=== PATIENT | female | born 1955 | race Caucasian/White ===

== ENCOUNTER → 2017-05-12 | Outpatient (CLI) | payer BC | LOC: MC.RAD 05-06 10:40 | DX: Z12.31 Encounter for screening mammogram for malignant neoplasm of breast (principal) ==

== ENCOUNTER → 2018-05-13 | Outpatient (CLI) | payer BC | LOC: MC.RAD 13:00 | DX: Z12.31 Encounter for screening mammogram for malignant neoplasm of breast (principal) ==

== ENCOUNTER → 2019-06-23 | Outpatient (CLI) | payer BC | LOC: MC.RAD 14:00 | DX: Z12.31 Encounter for screening mammogram for malignant neoplasm of breast (principal) ==

== ENCOUNTER → 2020-08-08 | Outpatient (CLI) | payer BC | LOC: MC.RAD 17:00 | DX: Z12.31 Encounter for screening mammogram for malignant neoplasm of breast (principal); N63.10 Unspecified lump in the right breast, unspecified quadrant ==

== ENCOUNTER → 2021-10-06 | Outpatient (CLI) | payer MEDICARE, BC | LOC: MC.RAD 13:30 | DX: Z12.31 Encounter for screening mammogram for malignant neoplasm of breast (principal); N63.10 Unspecified lump in the right breast, unspecified quadrant ==

== ENCOUNTER → 2021-10-17 | Outpatient (CLI) | payer MEDICARE, BC | LOC: MC.RAD 08:51 | DX: N63.12 Unspecified lump in the right breast, upper inner quadrant (principal); N64.89 Other specified disorders of breast ==

== ENCOUNTER → 2021-10-22 | Outpatient (CLI) | payer MEDICARE, BC | LOC: MC.RAD 07:57 | DX: N63.11 Unspecified lump in the right breast, upper outer quadrant (principal) ==

== ENCOUNTER → 2021-11-12 | Outpatient (CLI) | payer MEDICARE, BC ==
[~2021-11-12] MED LIST: MASON NATURAL2000 IU PO; MOBIC15 MG PO; MULTI VITAMINS1 TAB PO; NORCO 325 MG-51 TAB PO; PEPCID 20MG TAB20 MG PO; PRESERVISION1 SGL PO; PRINZIDE 12.5 M1 TA1 PO; SYNTHROID0.05 MG/TA PO
== END ==
LOC: MC.RAD 13:00
DX: C50.811 Malignant neoplasm of overlapping sites of right female breast (principal)
CPT/HCPCS: 32605; A9520; C1769

== ENCOUNTER 2021-11-13 06:57 | Day surgery (SDC) | payer MEDICARE, BC ==
[~2021-11-13] VITALS: Ht 160 cm; Wt 74.5 kg
[2021-11-13 08:26] VITALS: BP 106/70; PULSE 77; TEMP 98
[2021-11-13] MEDS ORDERED: PRINZIDE 12.5 M1 TA1 PO (08:32)
[2021-11-13] MEDS ORDERED: SYNTHROID0.05 MG/TA PO (08:32)
[2021-11-13] MEDS ORDERED: MOBIC15 MG PO (08:34)
[2021-11-13] MEDS ORDERED: MULTI VITAMINS1 TAB PO (08:35)
[2021-11-13] MEDS ORDERED: MASON NATURAL2000 IU PO (08:36)
[2021-11-13] MEDS ORDERED: PRESERVISION1 SGL PO (08:38)
[2021-11-13] MEDS ORDERED: PEPCID 20MG TAB20 MG PO (08:39)
[2021-11-13] MEDS ORDERED: NORCO 325 MG-51 TAB PO (10:53)
[2021-11-13 12:00] VITALS: BP 101/61; PULSE 89; TEMP 98.4
[2021-11-13 12:15] VITALS: BP 104/54; PULSE 88
[2021-11-13 12:30] VITALS: BP 103/47; PULSE 87
--- NOTE | 2021-11-13 13:29 | NUR ---
Pt returned via cart to [place] [facility]. Pt Alert and spouse present in room upon return. Pts dressing to right breast surgical site clean, dry and intact with dry dressing and paper tape. Pt reports mild discomfort at surgery site. Ice chips tolerated and pt given jello and patrick crackers to eat prior to trying oral pain medication. Pt tolerated oral intake but verbalized she does not want to take narcotics due to the side effects she has with them. Pt asked if okay to take tylenol instead, told pt ok if this is adequate to manage her pain. Pts VSS-though BP on the lower side. Pt sat on side of bed per request to try to feel a little more ready to try to dress for discharge. Pt sitting on side of bed with spouse at bedside.
[2021-11-13 13:45] VITALS: BP 106/64; PULSE 87
--- NOTE | 2021-11-13 13:52 | NUR ---
Pt chose to lay down again reporting she just was not feeling "quite right". BP rechecked-and stable. 106/64, HR 87. Denies nausea or other complaints but does not feel comfortable getting up to get ready for discharge. Pt given saltines and another cup of water per request. Will continue to monitor pt and spouse remains at bedside.
--- NOTE | 2021-11-13 14:35 | NUR ---
1415- Patient up to bathroom, able to void without difficulty. IV removed without complication. Reviewed education material and discharge instructions, pt and verbalized understanding. Instructed pt to dress and open door when ready for discharge. 1435- Transfered pt via wheelchair to personal vehicle to be driven home by .
== END 2021-11-13 14:35 | disposition home or self-care (01) ==
LOC: SDCO 06:57
DX: C50.811 Malignant neoplasm of overlapping sites of right female breast (principal); I10 Essential (primary) hypertension; K21.9 Gastro-esophageal reflux disease without esophagitis; M19.90 Unspecified osteoarthritis, unspecified site; E07.9 Disorder of thyroid, unspecified; Z90.710 Acquired absence of both cervix and uterus; Z79.890 Hormone replacement therapy; Z79.899 Other long term (current) drug therapy; Z80.0 Family history of malignant neoplasm of digestive organs
CPT/HCPCS: A4648; J0690; J1100; J1885; J2250; J2405; J2704; J2795; J3010

== ENCOUNTER → 2023-11-16 | Outpatient (CLI) | payer MEDICARE | LOC: MC.RAD 09:59 | DX: Z12.31 Encounter for screening mammogram for malignant neoplasm of breast (principal); N63.21 Unspecified lump in the left breast, upper outer quadrant ==

== ENCOUNTER → 2023-11-23 | Outpatient (CLI) | payer MEDICARE, BC | LOC: MC.RAD 12:54 | DX: R92.8 Other abnormal and inconclusive findings on diagnostic imaging of breast (principal) ==